=== PATIENT | male | born 2000 | race Caucasian/White ===

== ENCOUNTER 2020-04-17 18:07 | Emergency (ER) | payer SELFPAY ==
[~2020-04-17] VITALS: Ht 157.5 cm; Wt 75.0 kg
[2020-04-17 19:48] VITALS: BP 115/71
== END 2020-04-17 19:49 | disposition home or self-care (01) ==
LOC: EMS 18:12
DX: U07.1 COVID-19 (principal); F17.210 Nicotine dependence, cigarettes, uncomplicated
CPT/HCPCS: 99283; U0003